=== PATIENT | female | born 1960 ===

== ENCOUNTER → 2018-04-13 | Outpatient (CLI) | payer OTHER ==
[~2018-04-13] MED LIST: ACET325; CYCL10 PO; NAPR550 PO; OXYACE5T PO; QUIN325 PO; RXNAPNA550 PO
== END | disposition home or self-care (01) ==
LOC: OLS 17:12 → LAB SHORT 17:12
PROVIDERS: Nurse Practitioner Women's Health
DX: Z12.72 Encounter for screening for malignant neoplasm of vagina (principal); Z91.89 Other specified personal risk factors, not elsewhere classified
CPT/HCPCS: 87624; G0123

== ENCOUNTER 2018-07-02 06:01 | Day surgery (SDC) | payer OTHER ==
[~2018-07-02] VITALS: Ht 157.5 cm; Wt 116.6 kg
[~2018-07-02 06:01] MED LIST changes: +ASPIRIN-ACETAM1 EACH PO; +ATOR20 PO; +CHOL10002 PO; +EXCEDRIN MIGRAINE; +Flonase 0.05% N16 GM; +LISI20 PO; +MAGCHL64ER PO; +OSTEO BI-FLEX1 EAC2 PO; +Omeprazole20 M1 PO; +Super B Comple150 MG PO; +VAGIFEM10 MCG VAG; +ZYRTEC10 M1 PO
[2018-07-02 15:10] LABS: BASOPHILS ABSOLUTE AUTO 0.04 K/mm3 (0.00-0.23); BASOPHILS PERCENT AUTO 0 % (0-2); EOSINOPHILS ABSOLUTE AUTO 0.02 K/mm3 (0.00-0.68); EOSINOPHILS PERCENT AUTO 0 % (0-6); Hematocrit 37.9 % (33.0-51.0); Hemoglobin 12.3 g/dL (11.5-16.0); IMMATURE GRAN PERCENT AUTO 1 % (0-1); LYMPHOCYTES ABSOLUTE AUTO 1.57 K/mm3 (0.84-5.20); LYMPHOCYTES PERCENT AUTO 11 % (21-46); MONOCYTES ABSOLUTE AUTO 0.17 K/mm3 (0.16-1.47); MONOCYTES PERCENT AUTO 1 % (4-13); Mean Corpuscular HGB 27.2 pg (26.0-34.0); Mean Corpuscular HGB Conc 32.5 g/dL (31.5-36.5); Mean Corpuscular Volume 84 fL (80-100); Mean Platelet Volume 9.9 fL (9.1-12.4); NEUTROPHILS ABSOLUTE AUTO 13.08 K/mm3 (1.96-9.15); NEUTROPHILS PERCENT AUTO 87 % (41-73); Platelet Count 310 K/mm3 (150-400); RDW Coefficient Variation 13.3 % (11.7-14.2); RDW Standard Deviation 40.6 fL (35.1-46.3); Red Blood Cell Count 4.53 M/mm3 (3.80-5.20); White Blood Cell Count 14.98 K/mm3 (4.00-11.30)
[2018-07-03 05:38] LABS: BASOPHILS ABSOLUTE AUTO 0.03 K/mm3 (0.00-0.23); BASOPHILS PERCENT AUTO 0 % (0-2); EOSINOPHILS ABSOLUTE AUTO 0.01 K/mm3 (0.00-0.68); EOSINOPHILS PERCENT AUTO 0 % (0-6); Hematocrit 35.5 % (33.0-51.0); Hemoglobin 11.5 g/dL (11.5-16.0); IMMATURE GRAN ABSOLUTE AUTO 0.15 K/mm3 (0.00-0.10); IMMATURE GRAN PERCENT AUTO 1 % (0-1); LYMPHOCYTES ABSOLUTE AUTO 2.52 K/mm3 (0.84-5.20); LYMPHOCYTES PERCENT AUTO 12 % (21-46); MONOCYTES ABSOLUTE AUTO 1.23 K/mm3 (0.16-1.47); MONOCYTES PERCENT AUTO 6 % (4-13); Mean Corpuscular HGB 27.3 pg (26.0-34.0); Mean Corpuscular HGB Conc 32.4 g/dL (31.5-36.5); Mean Corpuscular Volume 84 fL (80-100); Mean Platelet Volume 10.5 fL (9.1-12.4); NEUTROPHILS ABSOLUTE AUTO 17.24 K/mm3 (1.96-9.15); NEUTROPHILS PERCENT AUTO 82 % (41-73); Platelet Count 311 K/mm3 (150-400); RDW Coefficient Variation 13.5 % (11.7-14.2); RDW Standard Deviation 41.5 fL (35.1-46.3); Red Blood Cell Count 4.21 M/mm3 (3.80-5.20); White Blood Cell Count 21.18 K/mm3 (4.00-11.30)
[2018-07-03] MEDS ORDERED: Percocet 5-3251 EACH PO (11:14)
== END 2018-07-03 13:40 | disposition home or self-care (01) ==
LOC: ORSCMMR 06:01 → ORD 07:30 → ORSCMMR 07:30 → SURS 09:40 → ORSCMMR 07-03 13:40
PROVIDERS: Obstetrics & Gynecology Gynecology
PROC: 0JQC0ZZ Repair Pelvic Region Subcutaneous Tissue and Fascia, Open Approach (ICD-10-PCS; principal; 2018-07-03)
PROC: 0TSD0ZZ Reposition Urethra, Open Approach (ICD-10-PCS; principal; 2018-07-03)
DX: N81.12 Cystocele, lateral (principal); N39.3 Stress incontinence (female) (male); I10 Essential (primary) hypertension; K21.9 Gastro-esophageal reflux disease without esophagitis; E78.00 Pure hypercholesterolemia, unspecified; J45.909 Unspecified asthma, uncomplicated; E66.9 Obesity, unspecified; Z68.42 Body mass index [BMI] 45.0-49.9, adult; Z79.899 Other long term (current) drug therapy
CPT/HCPCS: 36415; 51702; 85025; C1771; J0690; J1100; J1885; J2001; J2250; J2405; J2710; J3010; J7120

== ENCOUNTER → 2018-07-10 | Outpatient (CLI) | payer OTHER ==
[~2018-07-10] MED LIST changes: +Percocet 5-3251 EACH PO
== END | disposition home or self-care (01) ==
LOC: LAB 10:54 → LAB SHORT 10:54
DX: B35.6 Tinea cruris (principal)
CPT/HCPCS: 87070; 87205

== ENCOUNTER → 2019-04-26 | Outpatient (CLI) | payer OTHER ==
[~2019-04-26] MED LIST changes: +ACYC800 PO; +OPTLUBOPOB LEFTEYE; +Prednisone20 MG PO
[2019-04-28 14:07] LABS: HPV 16 Negative (Negative); HPV 18 Negative (Negative); HPV OTHER HR TYPES Negative (Negative)
== END | disposition home or self-care (01) ==
LOC: LAB 17:58 → LAB SHORT 17:58
PROVIDERS: Nurse Practitioner Women's Health
DX: Z01.419 Encounter for gynecological examination (general) (routine) without abnormal findings (principal); Z12.72 Encounter for screening for malignant neoplasm of vagina; Z91.89 Other specified personal risk factors, not elsewhere classified
CPT/HCPCS: 87624; G0123

== ENCOUNTER 2019-11-04 12:45 | Day surgery (SDC) | payer OTHER ==
[~2019-11-04] VITALS: Ht 157.5 cm; Wt 117.7 kg
[~2019-11-04 12:45] MED LIST changes: +MELO7.5 PO; +OSTEO BI-FLEX1 EACH PO; +ZESTRIL40 M1 PO
--- NOTE | 2019-11-04 14:39 | NUR ---
11/04/19 1439 Shari Lowe 02 10L VIA NON REBREATHER
--- NOTE | 2019-11-04 15:16 | NUR ---
11/04/19 1516 Shari Lowe GIVEN PER ORDERS UPON ARRIVAL TO SDU. PT ON RA AT THIS TIME. CHEST X RAY ORDERED.
== END 2019-11-04 16:51 | disposition home or self-care (01) ==
LOC: ORSCSDS 12:45
PROVIDERS: Student in an Organized Health Care Education/Training Program
PROC: 0DJD8ZZ Inspection of Lower Intestinal Tract, Via Natural or Artificial Opening Endoscopic (ICD-10-PCS; principal; 2019-11-04 14:45)
DX: Z12.11 Encounter for screening for malignant neoplasm of colon (principal); Z80.0 Family history of malignant neoplasm of digestive organs; K64.4 Residual hemorrhoidal skin tags; I10 Essential (primary) hypertension; E78.5 Hyperlipidemia, unspecified; G47.33 Obstructive sleep apnea (adult) (pediatric); Z79.899 Other long term (current) drug therapy
CPT/HCPCS: 71046; J1100; J2405; J2704; J7120

== ENCOUNTER → 2019-11-23 | Outpatient (CLI) | payer OTHER | END | disposition home or self-care (01) | LOC: LAB SRC 13:11 → LAB SHORT 13:11 → LAB FUT 11-22 10:30 | DX: E55.9 Vitamin D deficiency, unspecified (principal); K21.9 Gastro-esophageal reflux disease without esophagitis | CPT/HCPCS: 87338 ==

== ENCOUNTER 2022-04-08 05:58 | Day surgery (SDC) | payer OTHER ==
[~2022-04-08] VITALS: Ht 157.5 cm; Wt 101.0 kg
[~2022-04-08 05:58] MED LIST changes: +CALCI PO; +CO Q-10100 MG PO; +DOCU100 PO; +Diethylpropion25 MG PO; +EXCEDRIN MIGRAINE PO; +FAMO20 PO; +MAGNESIUM PO; +POTASSIUM PO; +TURMERIC ROOT5000 GM PO; +[UNRECOGNIZED DRUG - OTHER] PO
[2022-04-08] MEDS ORDERED: OXYC5 PO (16:30)
[2022-04-08] MEDS ORDERED: SULTRIDS PO (16:31)
[2022-04-08] MEDS ORDERED: ASPI81CH PO (16:32)
--- NOTE | 2022-04-08 16:59 | NUR ---
SHIFT SUMMARY PT HAS DONE WELL POST OP. PAIN WELL MANAGED, EATING & DRINKING EASILY, WORKED w/ THERAPY. NO DRAINAGE TO WENDY WRAP.
--- NOTE | 2022-04-09 05:41 | NUR ---
SHIFT SUMMARY A/O X4 THROUGHOUT SHIFT. VITAL SIGNS STABLE. PT AMBULATED TO BATHROOM W/ SBA, GB, AND FWW, AND IS VOIDING WELL. TOLERATING PO INTAKE. POD1 R TKA, WENDY WRAP IN PLACE C/D/I. PAIN MANAGED WITH PO PAIN MEDICATIONS. PLEASANT AND COOPERATIVE WITH CARE WILL CONTINUE TO MONITOR AND REPORT TO ONCOMING RN.
[2022-04-09 06:00] LABS: BASOPHILS ABSOLUTE AUTO 0.04 K/mm3 (0.00-0.23); BASOPHILS PERCENT AUTO 0 % (0-2); EOSINOPHILS ABSOLUTE AUTO 0.07 K/mm3 (0.00-0.68); EOSINOPHILS PERCENT AUTO 0 % (0-6); Hematocrit 35.4 % (33.0-51.0); Hemoglobin 11.7 g/dL (11.5-16.0); IMMATURE GRAN PERCENT AUTO 1 % (0-1); LYMPHOCYTES ABSOLUTE AUTO 2.32 K/mm3 (0.84-5.20); LYMPHOCYTES PERCENT AUTO 13 % (21-46); MONOCYTES ABSOLUTE AUTO 1.39 K/mm3 (0.16-1.47); MONOCYTES PERCENT AUTO 8 % (4-13); Mean Corpuscular HGB 28.5 pg (26.0-34.0); Mean Corpuscular HGB Conc 33.1 g/dL (31.5-36.5); Mean Corpuscular Volume 86 fL (80-100); Mean Platelet Volume 9.9 fL (9.1-12.4); NEUTROPHILS ABSOLUTE AUTO 13.72 K/mm3 (1.96-9.15); NEUTROPHILS PERCENT AUTO 78 % (41-73); Platelet Count 285 K/mm3 (150-400); RDW Coefficient Variation 12.6 % (11.7-14.2); RDW Standard Deviation 39.9 fL (35.1-46.3); Red Blood Cell Count 4.11 M/mm3 (3.80-5.20); White Blood Cell Count 17.64 K/mm3 (4.00-11.30)
[2022-04-09 06:22] LABS: Creatinine, Blood 0.69 mg/dL (0.40-1.00); Magnesium, Blood 1.8 mg/dL (1.6-2.4); Potassium, Blood 4.2 mmol/L (3.5-5.5)
--- NOTE | 2022-04-09 09:45 | NUR ---
DISCHARGE PATIENT CLEARED THERAPY THIS AM, VSS ON RA. AMBULATING WELL WITH FWW&GB. EATING, DRINKING, & VOIDING. REPORTS PAIN TO BE TOLERABLE. DISCUSSED DISCHARGE INSTRUCTIONS. PATIENT SENT WITH DC INSTRUCTIONS, AQUACEL DRESSINGS, & POLAR PACK. ESCORTED OUT VIA W/C.
== END 2022-04-09 09:35 | disposition home or self-care (01) ==
LOC: ORSCMMR 05:58 → ORD 07:30 → SURS 10:42 → ORSCMMR 04-09 09:35
PROVIDERS: Orthopaedic Surgery
PROC: 0SRC0J9 Replacement of Right Knee Joint with Synthetic Substitute, Cemented, Open Approach (ICD-10-PCS; principal; 2022-04-08 07:30)
DX: M17.0 Bilateral primary osteoarthritis of knee (principal); E66.01 Morbid (severe) obesity due to excess calories; Z68.41 Body mass index [BMI] 40.0-44.9, adult; I10 Essential (primary) hypertension; E78.00 Pure hypercholesterolemia, unspecified; J45.909 Unspecified asthma, uncomplicated; Z79.899 Other long term (current) drug therapy
CPT/HCPCS: 36415; 73560-RT; 80048; 83735; 85025; 97110; 97116; 97161; A9270; C1713; C1776; J0171; J0690; J0735; J1100; J1885; J2250; J2370; J2405; J2704; J2795; J3010; J3370; J7060; J7120

== ENCOUNTER 2023-09-03 10:44 | Day surgery (SDC) | payer OTHER ==
[~2023-09-03] VITALS: Ht 157.5 cm; Wt 108.0 kg
[2023-09-03] VITALS (15 sets, daily range): BP systolic 80–159; BP diastolic 37–92
[~2023-09-03 10:44] MED LIST changes: +ASPI81CH PO; -CHOL10002 PO; +LUTEIN PO; +OXYC5 PO; +SULTRIDS PO; +VITAMIN D310 MC4 PO
[2023-09-03] MEDS ORDERED: POTA8 PO (11:38)
[2023-09-03] MEDS ORDERED: LUTEIN40 MG PO (11:38)
[2023-09-03] MEDS ORDERED: EXTRA PAIN REL1 EAC2 PO (11:40)
--- NOTE | 2023-09-03 12:15 | NUR ---
History, Chart, Medications and Allergies reviewed before start of procedure. Ambulatory in Day Surgery. Pre-Op teaching done. Pt verbalizes understanding. Patient confirms NPO status and agrees with scheduled surgery. Lungs clear T/O to Auscultation. Patient reports completing Chlorhexadine shower X2 prior to admission to hospital. Surgical site prepped with 2% Chlorhexidine cloth wipe. Patient States Post-Procedure ride home has been arranged.
--- NOTE | 2023-09-03 16:39 | NUR ---
PATIENT ARRIVED FROM PACU TODAY AT 1630. POD 0 LEFT TOTAL KNEE PATIENT IS A&OX4. VS ARE WNL AND IS ON RA. PATIENT HAD A SPINAL DURING THE PROCEDURE BUT REPORTS HAVING FULL SENSATION TO ALL EXTREMITIES AND DENIES PAIN AT THIS TIME. HER LEFT KNEE HAS AN WENDY WRAP THAT IS C/D/I. CAN MOVE ALL FINGERS AND TOES WHEN ASKED. SHE IS TOLERATING PO INTAKE. PATIENT IS LAYING IN BED WITH CALL LIGHT IN REACH.
[2023-09-04 04:14] VITALS: BP 123/64
--- NOTE | 2023-09-04 04:58 | NUR ---
SHIFT SUMMARY POD 1 L TKA. NO ACUTE CHANGES OVERNIGHT. VS WNL FOR PT. TOLERATING ORALS, PT REPORTED SOME NAUSEA TOWARD THE END OF THE SHIFT, NO VOMITING, MANAGED PER EMAR. GAUZE/WENDY WRAP C/D/I. PT STATES ALLERGY TO AQUACEL ADHESIVE. POLAR PACK TO AFFFECTED IN PLACE THROUGHOUT THE NIGHT. PT AMBULATES c FWW & SBA. PAIN TOLERABLE PER PT REPORT c ORAL MEDICATION. PT ABLE TO URINATE SMALL AMOUNTS, BLADDER SCANNED AMOUNT APPROX 200mL. ANDICIPATED DISCHARGE TODAY. CALL LIGHT WITHIN REACH, BED IN LOWEST POSITION, WILL REPORT TO DAY RN.
[2023-09-04 05:10] LABS: BASOPHILS ABSOLUTE AUTO 0.05 K/mm3 (0.00-0.23); BASOPHILS PERCENT AUTO 0 % (0-2); EOSINOPHILS ABSOLUTE AUTO 0.13 K/mm3 (0.00-0.68); EOSINOPHILS PERCENT AUTO 1 % (0-6); Hematocrit 35.5 % (33.0-51.0); Hemoglobin 11.6 g/dL (11.5-16.0); IMMATURE GRAN ABSOLUTE AUTO 0.06 K/mm3 (0.00-0.10); IMMATURE GRAN PERCENT AUTO 1 % (0-1); LYMPHOCYTES ABSOLUTE AUTO 2.29 K/mm3 (0.84-5.20); LYMPHOCYTES PERCENT AUTO 18 % (21-46); MONOCYTES PERCENT AUTO 8 % (4-13); Mean Corpuscular HGB Conc 32.7 g/dL (31.5-36.5); Mean Corpuscular Volume 86 fL (80-100); Mean Platelet Volume 9.9 fL (9.1-12.4); NEUTROPHILS ABSOLUTE AUTO 9.45 K/mm3 (1.96-9.15); NEUTROPHILS PERCENT AUTO 73 % (41-73); Platelet Count 268 K/mm3 (150-400); RDW Coefficient Variation 13.2 % (11.7-14.2); RDW Standard Deviation 41.2 fL (35.1-46.3); Red Blood Cell Count 4.15 M/mm3 (3.80-5.20); White Blood Cell Count 12.98 K/mm3 (4.00-11.30)
[2023-09-04 05:31] LABS: Bun/Creatinine Ratio 27.7 (12.0-20.0); Calcium, Blood 8.5 mg/dL (8.5-10.1); Creatinine, Blood 0.72 mg/dL (0.40-1.00); Magnesium, Blood 1.8 mg/dL (1.6-2.4); Potassium, Blood 3.9 mmol/L (3.5-5.5)
[2023-09-04 07:17] VITALS: BP 107/67
--- NOTE | 2023-09-04 12:59 | NUR ---
SHIFT SUMMARY POD1 L TKA, A/OX4, VSS, TOLERATING PO, PAIN WELL MANAGED, AMBULATING, VOIDING, DRESSING CHANGED BY SURGEON THIS AM AND WOUND CARE PROVIDED. DISCUSSED DISCHARGE INFORMATION WITH HER INCLUDING HOME CARE, MEDICATION, AND FOLLOW UP APPOITMENTS. PROVIDED HER WITH DRESSING SUPPLIES WHILE AT HOME. NO QUESTIONS AT THIS TIME, IV ACCESS REMOVED. PT ESCORTED OUT VIA WC TO PRIVATE AUTO TO GO HOME.
== END 2023-09-04 11:50 | disposition home or self-care (01) ==
LOC: ORSCMMR 10:44 → ORD 14:00 → ORSCMMR 14:00 → SURS 16:14 → ORSCMMR 09-04 11:50
PROVIDERS: Orthopaedic Surgery
PROC: 0SRD0J9 Replacement of Left Knee Joint with Synthetic Substitute, Cemented, Open Approach (ICD-10-PCS; principal; 2023-09-03 14:00)
DX: M17.12 Unilateral primary osteoarthritis, left knee (principal); Z96.651 Presence of right artificial knee joint; I10 Essential (primary) hypertension; K21.9 Gastro-esophageal reflux disease without esophagitis; J45.909 Unspecified asthma, uncomplicated; E78.00 Pure hypercholesterolemia, unspecified; Z79.899 Other long term (current) drug therapy; E66.01 Morbid (severe) obesity due to excess calories; Z68.41 Body mass index [BMI] 40.0-44.9, adult
CPT/HCPCS: 36415; 73560-LT; 80048; 82947; 83735; 85025; 97110; 97116; 97161; 97530; A9270; C1713; C1776; J0171; J0690; J0735; J1885; J2250; J2371; J2405; J2704; J2765; J2795; J3370; J7120

== ENCOUNTER 2025-03-16 19:56 | Emergency (ER) | payer OTHER ==
[~2025-03-16] VITALS: Ht 157.5 cm; Wt 118.8 kg
[~2025-03-16 19:56] MED LIST changes: +EXTRA PAIN REL1 EAC2 PO; +LUTEIN40 MG PO; +POTA8 PO
[2025-03-16 21:20] LABS: BASOPHILS ABSOLUTE AUTO 0.06 K/mm3 (0.00-0.23); BASOPHILS PERCENT AUTO 1 % (0-2); EOSINOPHILS ABSOLUTE AUTO 0.36 K/mm3 (0.00-0.68); EOSINOPHILS PERCENT AUTO 3 % (0-6); Hematocrit 38.8 % (33.0-51.0); Hemoglobin 12.8 g/dL (11.5-16.0); IMMATURE GRAN ABSOLUTE AUTO 0.03 K/mm3 (0.00-0.10); IMMATURE GRAN PERCENT AUTO 0 % (0-1); LYMPHOCYTES ABSOLUTE AUTO 4.32 K/mm3 (0.84-5.20); LYMPHOCYTES PERCENT AUTO 40 % (21-46); MONOCYTES ABSOLUTE AUTO 0.84 K/mm3 (0.16-1.47); MONOCYTES PERCENT AUTO 8 % (4-13); Mean Corpuscular HGB 27.4 pg (26.0-34.0); Mean Corpuscular Volume 83 fL (80-100); Mean Platelet Volume 9.5 fL (9.1-12.4); NEUTROPHILS ABSOLUTE AUTO 5.27 K/mm3 (1.96-9.15); NEUTROPHILS PERCENT AUTO 48 % (41-73); Platelet Count 331 K/mm3 (150-400); RDW Coefficient Variation 14.3 % (11.7-14.2); RDW Standard Deviation 42.8 fL (35.1-46.3); Red Blood Cell Count 4.68 M/mm3 (3.80-5.20); White Blood Cell Count 10.88 K/mm3 (4.00-11.30)
[2025-03-16 21:39] LABS: Albumin, Blood 3.5 g/dL (3.4-5.0); Albumin/Globulin Ratio 0.9 (0.8-1.8); Bilirubin, Total 0.2 mg/dL (0.1-1.0); Bun/Creatinine Ratio 16.5 (12.0-20.0); Creatinine, Blood 1.09 mg/dL (0.40-1.00); Globulin, Blood 3.7 g/dL (2.2-4.0); Potassium, Blood 4.3 mmol/L (3.5-5.5); Total Protein, Blood 7.2 g/dL (6.4-8.2)
[2025-03-16] MEDS ORDERED: Lactated Ringer's 1,000 ML IV ONE (23:25)
[2025-03-17] MEDS ORDERED: Metoprolol Tartrate 1 MG/ML 5 ML VIAL IV PRN (00:25)
[2025-03-17] MEDS ORDERED: Metoprolol Tartrate 25 MG Tab PO ONE (00:50)
[2025-03-17] MEDS ORDERED: Apixaban 5 MG Tab PO ONE (01:20)
[2025-03-17] MEDS ORDERED: METO25 PO (01:25)
[2025-03-17] MEDS ORDERED: ELIQUIS5 M2 PO (01:25)
[2025-03-17 01:45] VITALS: BP 166/98
== END 2025-03-17 01:54 | disposition home or self-care (01) ==
LOC: ER 19:56
PROVIDERS: Student in an Organized Health Care Education/Training Program
DX: I48.91 Unspecified atrial fibrillation (principal); I10 Essential (primary) hypertension; E78.5 Hyperlipidemia, unspecified; Z88.5 Allergy status to narcotic agent; Z79.82 Long term (current) use of aspirin; Z79.899 Other long term (current) drug therapy
CPT/HCPCS: 71046; 80053; 84484; 85025; 93005; 93010; 96360; 99285-25; A9270; J7120